=== PATIENT | male | born 1990 | race Caucasian/White ===

== ENCOUNTER 2023-11-19 09:23 | Emergency (ER) | payer OTHER ==
[2023-11-19 09:29] VITALS: BP 131/88; PULSE 85; RESP 20; TEMP 99.1; BMI 29.9
[2023-11-19] MEDS ORDERED: predniSONE 20 MG TABLET (UD) ONE (09:40)
[2023-11-19] MEDS ORDERED: ALBUTEROL SO4 2.5/IPRATROPIUM 0.5 INH SOL 3 ML VIAL.NEB. NEB ONE (09:40)
[2023-11-19] MEDS: predniSONE 20 MG TABLET (UD) PO ONE (09:45)
[2023-11-19] MEDS: ALBUTEROL SO4 2.5/IPRATROPIUM 0.5 INH SOL 3 ML VIAL.NEB. NEB SCH ×2 (09:56)
== END 2023-11-19 10:43 | disposition home or self-care (01) ==
LOC: JERFT 09:23
PROC: 3E0F7GC Introduction of Other Therapeutic Substance into Respiratory Tract, Via Natural or Artificial Opening (ICD-10-PCS; principal; 2023-11-19)
DX: J45.901 Unspecified asthma with (acute) exacerbation (principal); R06.02 Shortness of breath
CPT/HCPCS: 99283-25